=== PATIENT | male | born 1965 | race American Indian/Alaskan Native ===

== ENCOUNTER 2017-03-27 08:37 | Day surgery (SDC) | payer OTHER ==
[2017-03-27 09:28] VITALS: TEMP 97.5
[2017-03-27 09:29] VITALS: BMI 29.3
[2017-03-27 10:48] VITALS: O2SAT 100
[2017-03-27 11:47] VITALS: RESP 18
[2017-03-27 12:15] VITALS: BP 131/91; PULSE 67
== END 2017-03-27 12:13 | disposition home or self-care (01) ==
LOC: C.ENDO 08:37
PROVIDERS: ATTEND Internal Medicine Gastroenterology
DX: D12.5 Benign neoplasm of sigmoid colon (principal); K64.8 Other hemorrhoids; K57.90 Diverticulosis of intestine, part unspecified, without perforation or abscess without bleeding

== ENCOUNTER 2017-08-26 06:12 | Day surgery (SDC) | payer OTHER ==
[2017-08-21 11:51] VITALS: BMI 28.8
[2017-08-26] MEDS ORDERED: Bupivacaine-Epi 0.25%-1:200,000 PF Inj ONE (07:48)
[2017-08-26] MEDS ORDERED: ceFAZolin IV 1 gm in Dextrose 0 GM/0 ML BAG IVPB ONE (07:49)
[2017-08-26] MEDS ORDERED: Propofol 10 mg/ml Inj (20 ML) ONE ×2 (07:49→08:28)
[2017-08-26] MEDS ORDERED: Lidocaine 1% Inj (20ml) ONE (07:49)
[2017-08-26] MEDS ORDERED: Lactated Ringer's 1,000 ML IV ONE (08:28)
[2017-08-26] MEDS ORDERED: Midazolam 2 MG/2 ML VIAL ONE (08:28)
[2017-08-26] MEDS ORDERED: ceFAZolin IV 2 gm in Dextrose 2 GM/50 ML BAG IVPB ONE (08:32)
[2017-08-26] MEDS ORDERED: ePHEDrine 50 mg/ml Inj ONE (09:48)
--- NOTE | 2017-08-26 09:50 | PCM.SURG1 ---
Surgeon's Initial Post Op Note - Surgeon's Notes Surgeon: Esteban Provisioning Specialist: PGY4 Type of Anesthesia: General LMA, Local Pre-Operative Diagnosis: L back/shoulder sebaceous cyst Operative Findings: L back/shoulder sebaceous cyst Post-Operative Diagnosis: L back/shoulder sebaceous cyst Operation Performed: Excision of L back/shoulder sebaceous cyst Specimen/Specimens Removed: L back/shoulder sebaceous cyst Estimated Blood Loss: EBL {In ML}: 10 Blood Products Given: N/A Drains Used: No Drains Post-Op Condition: Good Date of Surgery/Procedure: 08/26/17 Time of Surgery/Procedure: 08:00
[2017-08-26] MEDS ORDERED: HYDROmorphone 0.5 mg/0.5 ml ISec IVP PRN (09:51)
[2017-08-26] MEDS ORDERED: Lactated Ringer's 500 ML IV ONE (10:50)
[2017-08-26 11:25] VITALS: BP 100/74; PULSE 76; RESP 18; TEMP 97; O2SAT 100
--- NOTE | 2017-08-26 18:18 | OP ---
PROCEDURE DATE: 08/26/2017 PREOPERATIVE DIAGNOSES: Sebaceous cyst of left upper back and left shoulder area approximately 5 x 4 cm size. POSTOPERATIVE DIAGNOSES: Sebaceous cyst of left upper back and left shoulder area approximately 5 x 4 cm size. PROCEDURES DONE: 1. Excision of a sebaceous cyst of left upper back and shoulder area, 5 x 4 cm size. 2. Layered closure of the wound, 5 x 4 cm size, complex. SURGEON: Shayne Orellana MD MEAT PACKER: Dr. Cory Kat, PGY-2 resident. ANESTHESIA: General, endotracheal tube anesthesia. ESTIMATED BLOOD LOSS: Around 10 mL. DRAIN: None. PATHOLOGY: The sebaceous cyst with skin overlying was sent for pathology. COMPLICATIONS: None. INTRAOPERATIVE FINDINGS: The patient had large sebaceous cyst of the left upper back and left shoulder area. DESCRIPTION OF PROCEDURE: On intraoperative steps, this is a 52-year-old male who was diagnosed with infected sebaceous cyst of the left upper back and shoulder area. The patient was given antibiotic course for 2 weeks and after complete resolution of the infection, the patient was consented for the excision of the sebaceous cyst, brought to the OR, placed on the operating table. After induction of the anesthesia, the patient was placed in left lateral position, and the left upper back and shoulder area was prepped and draped in the usual sterile fashion. The elliptical incision was made surrounding 2 different scar tissue overlying the subcutaneous cyst of the previous infection, and skin and subcutaneous tissue were incised. Upper and lower flaps were created. Lateral and medial flap was also created. The dissection was carried down deep up to the fascia and muscle and sebaceous cyst was completely excised. The wound was irrigated. Wound was also checked for hemostasis and after proper hemostasis, the defect appeared to be approximately 5 x 4 cm size and now the lateral flap was sutured to the underlying fascia. The another layer of the flap to the underlying fascia with 2-0 Vicryl, subcutaneous with a 3-0 Vicryl, skin with 4-0 Monocryl, also anther layer of the skin with a 4-0 nylon interrupted suture, and dry sterile dressing was applied. The patient tolerated the procedure well. Count of the instrument and gauze were correct. There was no apparent complication. The patient was reversed from anesthesia and sent to the Postanesthesia Care Unit in stable condition. Shayne Orellana MD
== END 2017-08-26 12:11 | disposition home or self-care (01) ==
LOC: C.SDS 06:12
PROVIDERS: ATTEND Surgery Surgical Critical Care
DX: L72.3 Sebaceous cyst (principal)
CPT/HCPCS: 11406; 12032; 88305; J0690; J2250; J2704; J3010; J7120

== ENCOUNTER 2017-10-28 09:40 | Day surgery (SDC) | payer OTHER ==
[2017-08-21 11:51] VITALS: BMI 28.8
[~2017-10-28 09:40] MED LIST: Lidocaine 1%/Epinephrine 1:100000 30 ml vial IJ ONE
[2017-10-28] MEDS ORDERED: Bupivacaine HCl 0.25% PF (10 ml) Inj ONE ×3 (12:36→15:44)
[2017-10-28] MEDS ORDERED: ceFAZolin IV 2 gm in Dextrose 2 GM/50 ML BAG IVPB ONE (12:36)
[2017-10-28] MEDS ORDERED: Midazolam 2 MG/2 ML VIAL ONE (12:57)
[2017-10-28] MEDS ORDERED: Propofol 10 mg/ml Inj (20 ML) ONE (12:57)
[2017-10-28] MEDS ORDERED: Lactated Ringer's 1,000 ML IV ONE ×2 (13:00→16:30)
[2017-10-28] MEDS ORDERED: HYDROmorphone 0.5 mg/0.5 ml ISec IVP PRN (14:50)
[2017-10-28] MEDS ORDERED: Sodium Chloride 0.9% 20 ML IV ONE (15:44)
[2017-10-28] MEDS ORDERED: Neostigmine Methylsulfate 3mg/3ml Syringe IV ONE (15:52)
[2017-10-28] MEDS ORDERED: Succinylcholine Chloride 20 mg/ml Syr (5 ml) IV ONE (15:52)
[2017-10-28] MEDS ORDERED: Rocuronium 10 mg/ml (5 ml) ONE (15:52)
[2017-10-28] MEDS ORDERED: Oxycodone/Acetaminophen 5/325 mg Tab PO ONE (16:31)
--- NOTE | 2017-10-28 16:38 | PCM.SURG1 ---
Surgeon's Initial Post Op Note - Surgeon's Notes Surgeon: Esteban Adolescent Coordinator: PGY4 Type of Anesthesia: General Endo, Block Regional Pre-Operative Diagnosis: R inguinal hernia, umbilical hernia Operative Findings: see op note Post-Operative Diagnosis: R inguinal hernia, umbilical hernia Operation Performed: Robotic assisted R inguinal hernia repair with mesh and excision of cord lipoma. Robotic assisted umbilical hernia repair with mesh. Serosal repair of colon. Lysis of adhesions. Bilateral TAP block Specimen/Specimens Removed: R inguinal cord lipoma. Umbilical hernia contents and sac Estimated Blood Loss: EBL {In ML}: 20 Blood Products Given: N/A Drains Used: No Drains Post-Op Condition: Good Date of Surgery/Procedure: 10/28/17 Time of Surgery/Procedure: 13:00
[2017-10-28 18:34] VITALS: RESP 16; TEMP 97
[2017-10-28 18:38] VITALS: BP 127/88; PULSE 86; O2SAT 97
--- NOTE | 2017-10-28 23:05 | OP ---
PROCEDURE DATE: 10/27/2017 PREOPERATIVE DIAGNOSES: 1. Right inguinal hernia. 2. Umbilical hernia. 3. Status post left inguinal hernia repair. POSTOPERATIVE DIAGNOSES: 1. Right inguinal hernia. 2. Umbilical hernia. 3. Postoperative omental adhesion in the pelvis due to previous left inguinal hernia repair. 4. Lipoma of the right spermatic cord. PROCEDURES DONE: 1. Robotic right inguinal hernia repair with mesh. 2. Robotic excision of lipoma of the right spermatic cord. 3. Robotic umbilical hernia repair with mesh. 4. Robotic lysis of adhesions, extensive, in the pelvis. 5. Robotic repair of serosal tear of the colon. 6. Bilateral laparoscopic TAP block placement. SURGEON: Shayne Orellana MD BUSINESS ARCHITECT: Cory Kat, PGY-4 resident; and KAVITHA Tapia TYPE OF ANESTHESIA: General endotracheal tube anesthesia. ESTIMATED BLOOD LOSS: Around 20 mL for all the procedure together. COMPLICATIONS: None. PATHOLOGY: 1. Lipoma of the right spermatic cord. 2. Umbilical hernia sac and content was sent for the pathology. DRAIN: None. INTRAOPERATIVE FINDINGS: The patient had right complete indirect inguinal hernia with lipoma of the cord. Patient also had 3 x 3 cm umbilical hernia with preperitoneal fat. Patient also had extensive omental adhesion unusually in the pelvis due to the previous left inguinal hernia and omental adhesion to the colon as well as omental adhesion to the anterior abdominal wall. DESCRIPTION OF PROCEDURE: On intraoperative steps, this is a 52-year-old male who was diagnosed with right inguinal hernia. Patient has also had umbilical hernia and the patient was consented for the robotic right inguinal hernia repair with mesh as well as umbilical hernia repair with mesh. Brought to the OR, placed supine on the operating table. After induction of the anesthesia, abdomen was prepped and draped in the usual sterile fashion. The Tavares catheter was placed. Using the Visiport technique, peritoneal cavity was entered after making a 5-mm incision in the left upper quadrant. Another two 8-mm ports were placed in the left flank; one in the midline below umbilicus, another 8-mm port was placed in the right upper quadrant. After the robot was brought in, camera arm as well as arm 1 and arm 2 were docked. Patient was found to have extensive omental adhesion in the pelvis, and the lysis of adhesion was done. The patient also had colonic adhesion. After that, the peritoneal dissection was carried down medially up to the space of Retzius laterally to the lateral abdominal wall, inferiorly up to the peritoneal reflection and anteriorly the inferior epigastric artery was identified. Now, the vas deferens and spermatic cord vessel were identified and it was from the indirect sac, and the dissection was carried down completely to relieve the sac distally, and the sac was reduced back into the peritoneal cavity. Right anatomical mesh was implanted and peritoneum was sutured with a 2-0 Vicryl suture. During colonic adhesion and during the peritoneal dissection, the small serosal tear on the colon was identified that was repaired with 3-0 Vicryl interrupted suture in double layer. It was expected incidental occurrence due to omental and peritoneal adhesions. Now the robot was undocked and the robot was docked into the left flank. First camera arm as well as arm 1 and arm 2 was docked. The umbilical hernia defect was identified and the sac was reduced. Content of the sac was sent off the table for the pathology. The defect was closed with a #1 Prolene V-Loc suture in two layers and 9-cm mesh was implanted. After proper implantation of the mesh, all the instruments were taken out, robot was undocked. Procedure was converted to laparoscopic and bilateral TAP block was given under direct vision; first, right side upper and lower 15:15 mL of Marcaine was injected, and on the left side, 15:15 mL of Marcaine was injected, and total 60 mL of Marcaine was given. After proper TAP block, all the port was taken out under vision, pneumo was deflated. The umbilical port site as well as all other port sites were closed in two layers, subcu with 2-0 Vicryl, skin with 4-0 Monocryl and dry sterile dressing was applied. The patient tolerated the procedure well. Count of the instruments and gauze was correct. There was no apparent complication. Shayne Orellana MD BRIT
== END 2017-10-28 18:43 | disposition home or self-care (01) ==
LOC: C.SDS 09:40
PROVIDERS: ATTEND Surgery Surgical Critical Care
DX: K40.90 Unilateral inguinal hernia, without obstruction or gangrene, not specified as recurrent (principal); K42.9 Umbilical hernia without obstruction or gangrene; K66.0 Peritoneal adhesions (postprocedural) (postinfection); D17.6 Benign lipomatous neoplasm of spermatic cord
CPT/HCPCS: 49329; 49650; 49652; 55559; 64488; 88302; 88304; C1781; J0690; J2001; J2250; J2405; J2704; J2710; J3010; J7120